=== PATIENT | male | born 1940 | race Caucasian/White ===

== ENCOUNTER 2018-03-21 10:30 | Emergency (ER) | payer OTHER ==
[~2018-03-21] VITALS: Ht 172.7 cm; Wt 88.5 kg
[2018-03-21] MEDS ORDERED: SYNTHROID100 MCG PO (11:09)
[2018-03-21] MEDS ORDERED: VERAPAMIL HCL240 M1 PO (11:10)
[2018-03-21] MEDS ORDERED: DIOVAN320 MG PO (11:10)
[2018-03-21] MEDS ORDERED: ALLOPURINOL100 MG PO (11:11)
[2018-03-21] MEDS ORDERED: DIAZEPAM10 MG PO (11:38)
== END 2018-03-21 12:19 | disposition home or self-care (01) ==
LOC: ER 10:30
DX: M54.32 Sciatica, left side (principal)

== ENCOUNTER 2019-03-07 12:10 | Emergency (ER) | payer OTHER ==
[~2019-03-07] VITALS: Ht 172.7 cm; Wt 88.5 kg
[~2019-03-07 12:10] MED LIST: ALLOPURINOL100 MG PO; DIAZEPAM10 MG PO; DIOVAN320 MG PO; SYNTHROID100 MCG PO; VERAPAMIL HCL240 M1 PO
[2019-03-07] MEDS ORDERED: PREDNISOLONE ACE5 M1 (12:31)
== END 2019-03-07 18:06 | disposition home or self-care (01) ==
LOC: ER 12:10
DX: R06.02 Shortness of breath (principal)